=== PATIENT | male | born 2000 | race Caucasian/White ===

== ENCOUNTER 2024-01-21 08:31 | Day surgery (SDC) | payer OTHER ==
[~2024-01-21] VITALS: Ht 182.9 cm; Wt 79.5 kg
[2024-01-21 07:42] LABS: BASO # 0.1 K/mm3 (0.0-0.2); EOS # 0.4 K/mm3 (0.0-0.7); GRAN % 58.9 % (42.2-75.2); HEMATOCRIT 47.6 % (42.0-52.0); LYMPH # 1.2 K/mm3 (1.2-3.4); LYMPH % 24.1 % (20.0-51.0); MEAN CELL VOLUME 89 fl (80.0-100.0); MEAN CORPUSCULAR HEMOGLOBIN 32 pg (27-31); MEAN CORPUSCULAR HGB CONC 36 g/dl (33.0-37.0); MEAN PLATELET VOLUME 10.2 fl (7.4-10.4); MONO # 0.4 K/mm3 (0.1-0.6); MONO % 7.8 % (1.7-9.3); PLATELET COUNT 275 K/mm3 (130-400); RED BLOOD COUNT 5.38 M/mm3 (4.20-5.60); REDCELL DISTRIBUTION WIDTH-CV 12.3 % (11.5-14.5)
[2024-01-21 07:43] LABS: ALBUMIN 4.8 g/dL (3.5-5.0); BILIRUBIN,TOTAL 3.9 mg/dL (0.2-1.2); CALCIUM 9.9 mg/dL (8.4-10.2); CREATININE, serum 0.93 mg/dL (0.72-1.25); POTASSIUM 3.9 mEq/L (3.5-4.5); TOTAL PROTEIN 7.7 g/dl (6.2-8.1)
[~2024-01-21 08:31] MED LIST: D5 1/2 NS & 20 mEq KCl 1,000 ML IV ONE
[2024-01-21 09:56] VITALS: BP 112/50; PULSE 52; TEMP 97.4
[2024-01-21] MEDS ORDERED: Ondansetron 4 MG/2 ML VIAL IV PRN (11:45)
[2024-01-21] MEDS ORDERED: Lidocaine PF 2% (20 MG/ML) 5 ML VIAL ONE ×2 (13:03)
[2024-01-21] MEDS ORDERED: fentaNYL 50 MCG/ML 2 ML VIAL ONE (13:03)
[2024-01-21 13:35] VITALS: BP 102/51; PULSE 64; TEMP 97.1
[2024-01-21 13:50] VITALS: BP 95/76; PULSE 52
[2024-01-21 14:05] VITALS: BP 112/68; PULSE 56
--- NOTE | 2024-01-21 14:25 | NUR ---
1335 RETURNS TO ROOM 3 PER CART FROM [facility]. AWAKE, ALERT WITH HOB ELEVATED 30 DEGREES. RESP UNLABORED. VITAL SIGNS OBTAINED. ABD SOFT. DENIES ABD/CHEST PAIN, NAUSEA OR DYSPHAGIA. CALL LIGHT AT SIDE. 1350 TOLERATES PO JUICE AND ICE CREAM WITHOUT NAUSEA. ADMITS TO SWALLOWING WITHOUT DIFFICULTY. 1355 DISCHARGE INSTRUCTIONS REVIEWED. PATIENT VERBALIZES UNDERSTANDING. COPY PROVIDED IN DISCHARGE FOLDER 1410 SITS ON EDGE OF CART. DRESSES SELF 1415 SITS IN WHEELCHAIR. AWAITING ARRIVAL OF FRIEND FOR TRANSPORT HOME
== END 2024-01-21 14:25 | disposition home or self-care (01) ==
LOC: SDCO 08:31 → EDSTATUS 13:00 → SDCO 14:25
PROVIDERS: Personal Emergency Response Attendant
DX: K21.00 Gastro-esophageal reflux disease with esophagitis, without bleeding (principal); D72.18 Eosinophilia in diseases classified elsewhere; R09.A2 Foreign body sensation, throat
CPT/HCPCS: J2704; J3010; J3480